=== PATIENT | female | born 1970 | race Caucasian/White ===

== ENCOUNTER → 2016-02-19 | Outpatient (CLI) | payer BC ==
[~2016-02-19] MED LIST: CHOL100010 PO; DICL75TA2 PO; FERR18TA; FLV1; IBUP-103 PO; LACT1CAP6; NASAL SPRAY; PRLSR20 PO; PSYL55.43 PO; SERT25TA PO; TYLOTC500 PO; VALA500T60 PO; [UNRECOGNIZED DRUG - CODE]
== END | disposition home or self-care (01) ==
LOC: C.RDSM 12:45
PROVIDERS: ATTEND Physical Medicine & Rehabilitation Sports Medicine
DX: M54.5 Low back pain (principal)

== ENCOUNTER → 2016-04-08 | Outpatient (CLI) | payer BC ==
[2016-04-08 17:15] LABS: URINE APPEARANCE CLEAR (CLEAR); URINE BILIRUBIN NEG (NEG); URINE COLOR YELLOW; URINE EPITHELIAL CELL AUTO >30 /lpf (0-5); URINE NITRITE NEG (NEG); URINE PH 7.5 (4.5-7.5); URINE SPECIFIC GRAVITY 1.003 (1.000-1.030); UROBILINOGEN NEG (NEG)
[2016-04-08 17:30] LABS: MANUAL MICROSCOPIC REQUIRED? NO; REVIEW REQ? NO
== END | disposition home or self-care (01) ==
LOC: C.LABSPEC 15:22
PROVIDERS: ATTEND Obstetrics & Gynecology
DX: N76.0 Acute vaginitis (principal); R39.9 Unspecified symptoms and signs involving the genitourinary system

== ENCOUNTER → 2016-05-23 | Outpatient (CLI) | payer BC ==
[~2016-05-23] MED LIST changes: +DICY10CA55 PO; +PRENTAB26 PO; +PYRI100T4 PO; +VNTHFA/IN INH
== END | disposition home or self-care (01) ==
LOC: C.LABSPEC 13:44
PROVIDERS: ATTEND Obstetrics & Gynecology
DX: N89.8 Other specified noninflammatory disorders of vagina (principal)

== ENCOUNTER → 2016-07-23 | Outpatient (CLI) | payer BC | END | disposition home or self-care (01) | LOC: C.LABSPEC 16:46 | PROVIDERS: ATTEND Obstetrics & Gynecology | DX: N76.4 Abscess of vulva (principal) ==

== ENCOUNTER → 2016-07-30 | Outpatient (CLI) | payer BC | END | disposition home or self-care (01) | LOC: C.LABSPEC 10:20 | PROVIDERS: ATTEND Obstetrics & Gynecology | DX: N76.4 Abscess of vulva (principal) ==

== ENCOUNTER → 2016-08-07 | Outpatient (CLI) | payer BC ==
[2016-08-07 12:22] LABS: BASO % 0.4 %; BASO ABS # 0.03 K/uL (0-0.2); COMPLETE YES; EOS % 1.5 %; HEMATOCRIT 41.5 % (37-47); IG% 0.3 %; LYMPH % 30.3 %; LYMPH ABS # 2.39 K/uL (1.2-3.4); MEAN CELL VOLUME 92.4 fL (80-100); MEAN CORPUSCULAR HEMOGLOBIN 29.6 pg (25-34); MEAN PLATELET VOLUME 9.4 fL (7.4-10.4); NEUT % 60.5 %; PLATELET COUNT 333 K/uL (130-400); RED BLOOD COUNT 4.49 M/uL (4.2-5.4)
[2016-08-07 13:06] LABS: ESTIMATED AVERAGE GLUCOSE 105 mg/dl; HA1C FLAG Normal (Normal)
[2016-08-11 14:15] LABS: EPSTEIN BARR VIR CAPSID IGG >750.00 U/ML
== END | disposition home or self-care (01) ==
LOC: C.LAB1850 11:36
PROVIDERS: ATTEND Obstetrics & Gynecology
DX: N76.0 Acute vaginitis (principal); R53.83 Other fatigue; R63.1 Polydipsia

== ENCOUNTER → 2016-11-03 | Outpatient (CLI) | payer BC ==
[~2016-11-03] MED LIST changes: -DICY10CA55 PO; -PRENTAB26 PO; -PYRI100T4 PO; -VNTHFA/IN INH
--- NOTE | 2016-11-03 12:07 | DIAGNOSTIC IMAGING REPORT ---
CHEST 2 VIEWS ROUTINE CLINICAL HISTORY: Cough. Chest pain. COMPARISON STUDY: Chest radiograph January 04, 2013. FINDINGS: Lung volumes are normal. No pneumothorax or pleural effusion is present. Pulmonary vascularity is normal. Cardiomediastinal silhouette is normal. The appearance of the chest is unchanged. IMPRESSION: No acute cardiopulmonary findings. Electronically signed by: Butch Hartley M.D. 11/03/2016 12:06 PM Dictated Date/Time: 11/03/2016 12:05 PM
== END | disposition home or self-care (01) ==
LOC: C.RAD1850 11:56
PROVIDERS: ATTEND Family Medicine
DX: R05 Cough (principal)

== ENCOUNTER → 2016-11-05 | Outpatient (CLI) | payer BC ==
--- NOTE | 2016-11-05 09:54 | DIAGNOSTIC IMAGING REPORT ---
ABDOMEN LIMITED (US) CLINICAL HISTORY: 46 years-old Female presenting with chest pain, right upper quadrant tenderness. TECHNIQUE: Real-time grayscale and limited color Doppler ultrasound imaging of the abdomen limited to the right upper quadrant was performed. COMPARISON: None. FINDINGS: Pancreas: Visualized portions of the pancreatic head and body normal. Liver: Normal echogenicity and echotexture. No sonographic evidence of hepatic mass. Main portal vein patent with normal directional flow. Biliary: No intrahepatic biliary ductal dilatation. Common bile duct measures up to 3 mm in diameter. Gallbladder: No evidence of gallstones, gallbladder wall thickening, gallbladder distention, or pericholecystic fluid or inflammatory change. Right kidney: No hydronephrosis. Ascites: None. Vasculature: Visualized portions of the abdominal aorta and IVC patent. IMPRESSION: Normal right upper quadrant ultrasound. Electronically signed by: Lasha Velasquez M.D. 11/05/2016 9:53 AM Dictated Date/Time: 11/05/2016 9:50 AM
== END | disposition home or self-care (01) ==
LOC: C.ULTR 09:27
PROVIDERS: ATTEND Family Medicine
DX: R07.9 Chest pain, unspecified (principal); R10.811 Right upper quadrant abdominal tenderness

== ENCOUNTER → 2016-11-26 | Outpatient (CLI) | payer BC ==
--- NOTE | 2016-11-26 13:40 | MAMMOGRAPHY REPORT ---
BILATERAL DIGITAL DIAGNOSTIC MAMMOGRAM TOMOSYNTHESIS WITH CAD AND TARGETED LEFT ULTRASOUND: 7 CLINICAL HISTORY: 46-year-old woman presents for bilateral screening mammography. A follow-up was pr eviously recommended in the right breast for an asymmetry versus mastectomy did not persist with messi tional imaging. Patient has a history of prior left breast surgery, and a skin scar is evident in th e axillary tail of the left breast. The patient also reports multiple areas of intermittent pain, wo rse with palpation in the left breast. No palpable mass or nipple discharge. TECHNIQUE: Bilateral CC and MLO 2-D and tomosynthesis images were obtained. Current study was also evaluated with a Computer Aided Detection (CAD) system. COMPARISON: Comparison is made to exams dated: 11/27/2014 ultrasound, 11/27/2014 mammogram, 5 mammogram, 05/07/2011 ultrasound, 05/07/2011 consultation, and 04/24/2010 ultrasound biopsy - [facility]. BREAST COMPOSITION: The tissue of both breasts is extremely dense, which lowers the sensitivity of m ammography. FINDINGS: No suspicious mass, asymmetry or cluster of microcalcifications is seen in the breasts. In particular, the asymmetry in the medial posterior right breast on the CC view is no longer seen, con firming benignity. There is a questionable area of architectural distortion in the far superior left breast on the MLO view (tomosynthesis slice 15/69), for which further evaluation with ultrasound was performed. Targeted ultrasound was performed in the superior left breast. While scanning in the superior left b reast, the patient reported prior surgery and a skin scar was visualized in the axillary tail region. Ultrasound of the superior left breast demonstrated several areas of pain elicited with scanning in particular in the 12:00 left breast, 9 cm from the nipple, 11:00 and 1:00 left breast, 9 cm from the nipple. However in these areas no suspicious solid or cystic mass was seen. Additional scanning pe rformed over the skin scar demonstrates expected architectural distortion. No suspicious solid or cy stic mass. Then a scar marker was placed overlying the skin scar and a repeat left MLO tomosynthesis image was o btained, which demonstrates correlation of the scar marker with the area of distortion, confirming be nign postsurgical distortion. IMPRESSION: ACR BI-RADS CATEGORY 2: BENIGN, TARGETED ULTRASOUND ACR BI-RADS CATEGORY 2: BENIGN There is expected architectural distortion from prior surgery in the axillary tail of the left breast . No persistent asymmetry in the medial right breast. Overall, no mammographic evidence of malignan cy bilaterally. Recommend bilateral mammography in one year. Consider remaining a diagnostic patien t given the extremely dense breasts and fluctuating pain. These results and recommendations were discussed with the patient at the time of the exam. Approximately 10% of breast cancers are not detected with mammography. A negative mammographic report should not delay biopsy if a clinically suggestive mass is present. Lilly Espino M.D. ay/:11/26/2016 10:42:34 [facility]: Abeba BREAUX(R)(M), [facility] letter sent: Normal 1/2 BI-RADS Code: ACR BI-RADS Category 2: Benign Ultrasound BI-RADS: ACR BI-RADS Category 2: Benign
== END ==
LOC: C.MAMM 09:44
PROVIDERS: ATTEND Obstetrics & Gynecology

== ENCOUNTER → 2016-12-10 | Outpatient (CLI) | payer BC ==
--- NOTE | 2016-12-10 10:36 | DIAGNOSTIC IMAGING REPORT ---
ULTRASOUND R VENOUS DOPP LOWER EXT UNILAT CLINICAL HISTORY: M79.604 RIGHT LEG SWELLING COMPARISON STUDY: No previous studies for comparison. FINDINGS: Real-time and color flow Doppler imaging were performed. Flow was seen within the femoral, popliteal and calf veins with no intraluminal thrombus demonstrated. The saphenous vein is patent. The patient reports a palpable abnormality within the anterior lower thigh just above the knee. There is an 18 x 13 x 7 mm hyperechoic focus containing a hypoechoic center within the subcutaneous fat corresponding to this abnormality. This likely represents an area of fat necrosis. IMPRESSION: No evidence of right lower extremity DVT. Electronically signed by: Michael Coronado M.D. 12/10/2016 10:34 AM Dictated Date/Time: 12/10/2016 10:33 AM
== END | disposition home or self-care (01) ==
LOC: C.ULTR 09:48
PROVIDERS: ATTEND Family Medicine
DX: M79.604 Pain in right leg (principal)

== ENCOUNTER → 2016-12-24 | Outpatient (CLI) | payer BC ==
[~2016-12-24] MED LIST changes: +PRENTAB26 PO; +PYRI100T4 PO; +VNTHFA/IN INH
== END | disposition home or self-care (01) ==
LOC: C.LABSPEC 15:48
PROVIDERS: ATTEND Obstetrics & Gynecology
DX: N76.0 Acute vaginitis (principal); N76.4 Abscess of vulva

== ENCOUNTER 2017-01-01 00:46 | Emergency (ER) | payer BC ==
[~2017-01-01] VITALS: Ht 160 cm; Wt 67.0 kg
[~2017-01-01 00:46] MED LIST changes: -PRENTAB26 PO; -PYRI100T4 PO; -VNTHFA/IN INH
[2017-01-01 00:47] VITALS: TEMP 36.7; Ht 160 cm; Wt 67.0 kg
[2017-01-01] MEDS ORDERED: SODIUM CHLORIDE 0.9% 1000ML 1,000 ML IV STA (00:57)
[2017-01-01] MEDS ORDERED: MoRPHine SULFATE 4 MG/ML 1 ML CARP\\VIAL IV STA ×2 (00:57→03:14)
[2017-01-01] MEDS ORDERED: ONDANSETRON INJ 2 MG/ML 2 ML VIAL IV STA (00:57)
[2017-01-01] MEDS ORDERED: OPTIRAY 320 IV PRN (01:15)
[2017-01-01 01:36] VITALS: O2SAT 98
[2017-01-01 01:38] LABS: URINE APPEARANCE CLEAR (CLEAR); URINE BILIRUBIN NEG (NEG); URINE COLOR YELLOW; URINE EPITHELIAL CELL AUTO 0-5 /lpf (0-5); URINE NITRITE NEG (NEG); URINE SPECIFIC GRAVITY 1.015 (1.000-1.030); UROBILINOGEN NEG (NEG); ZZUR CULT IF INDIC CLEAN CATCH NO
[2017-01-01 01:39] LABS: BASO % 0.3 %; BASO ABS # 0.03 K/uL (0-0.2); COMPLETE YES; EOS % 2.4 %; HEMATOCRIT 37.6 % (37-47); IG% 0.2 %; LYMPH % 40.7 %; MEAN CELL VOLUME 90.6 fL (80-100); MEAN CORPUSCULAR HEMOGLOBIN 29.9 pg (25-34); MEAN PLATELET VOLUME 9.2 fL (7.4-10.4); MONO % 7.6 %; NEUT % 48.8 %; PLATELET COUNT 325 K/uL (130-400); RED BLOOD COUNT 4.15 M/uL (4.2-5.4)
[2017-01-01 01:49] LABS: MANUAL MICROSCOPIC REQUIRED? NO; REVIEW REQ? NO
[2017-01-01 02:03] LABS: ALT/SGPT 23 U/L (12-78); AST/SGOT 18 U/L (15-37); BLOOD UREA NITROGEN 15 mg/dl (7-18); CALCIUM 8.7 mg/dl (8.5-10.1); CARBON DIOXIDE 27 mmol/L (21-32); CHLORIDE 107 mmol/L (98-107); CREATININE 0.62 mg/dl (0.60-1.20); GLUCOSE 84 mg/dl (70-99); POTASSIUM 3.7 mmol/L (3.5-5.1); SODIUM 140 mmol/L (136-145)
[2017-01-01 02:06] LABS: ALKALINE PHOSPHATASE 48 U/L (45-117)
[2017-01-01] MEDS ORDERED: VNTHFA/IN INH (02:08)
[2017-01-01] MEDS ORDERED: PRENTAB26 PO (02:09)
[2017-01-01] MEDS ORDERED: PYRI100T4 PO (02:10)
[2017-01-01] MEDS ORDERED: DICYCLOMINE HCL 10 MG CAP PO ONE (03:30)
[2017-01-01] MEDS ORDERED: DICY10CA55 PO (03:32)
[2017-01-01] MEDS ORDERED: BENTYL HOME PACK 10 MG VIAL PO ONE (03:45)
[2017-01-01 03:50] VITALS: BP 109/81; PULSE 77; O2SAT 97
--- NOTE | 2017-01-01 03:52 | EMERGENCY ROOM VISIT NOTE ---
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 Pain currently 8 out of 10. Nothing makes it better or worse. Patient's been having chronic chest pain from a pulled rib. This is unchanged. Patient has had 3 colonoscopies so far and all are negative. No history of diverticulosis or diverticulitis. There is a family history of colon cancer. Patient does suffer from IBS but this feels different. Patient denies dyspnea, fever, chills, vomiting, diarrhea, back pain , urinary symptoms. She just started her period. She has a history of endometriosis but this feels different. She sees Dr. Sales from [facility]. Review of Systems See HPI for pertinent positives & negatives. A total of 10 systems reviewed and were otherwise negative. Past Medical/Surgical History Medical Problems: (1) Depression (2) Hemorrhoids (3) IBS (irritable bowel syndrome) Social History Smoking Status: Never Smoker Smokeless Tobacco Use: No Drug Use: none Marital Status: Occupation Status: unemployed Current/Historical Medications Scheduled Cholecalciferol (Vitamin D), 2,000 INTER.UNIT PO DAILY Dicyclomine Hcl (Bentyl), 10 MG PO Q6 Ibuprofen Tab (Advil), 600 MG PO TID Multivit/Min/Iron/Fol Ac/Pren ( Vitamin), 1 TAB PO DAILY Pyridoxine (Vitamin B6), 200 MG PO DAILY Scheduled PRN Acetaminophen (Tylenol), 1,000 MG PO TID PRN for Pain Albuterol Hfa (Ventolin Hfa), 2 PUFFS INH Q6H PRN for SOB/Wheezing Valacyclovir (Valtrex), 500 MG PO BID PRN for Pain Allergies Coded Allergies: Bacitracin (Unverified Allergy, Mild, OTHER, 02/28/14) Cefprozil (Verified Allergy, Mild, ?, 02/28/14) Cefuroxime (Verified Allergy, Mild, ?, 02/28/14) Citric Acid (Unverified Allergy, Mild, OTHER, 02/28/14) Clarithromycin (Unverified Allergy, Mild, 02/28/14) Neomycin (Unverified Allergy, Mild, OTHER, 02/28/14) Povidone Iodine (Verified Allergy, Mild, SKIN IRRITATION, 02/28/14) Ketorolac Tromethamine (Verified Allergy, Unknown, UNKNOWN, 02/28/14) Pentazocine (Verified Allergy, Unknown, 02/28/14) Promethazine (Verified Allergy, Unknown, UNKNOWN, 02/28/14) Sulfa Drugs (Unverified Allergy, Unknown, rash, 02/28/14) Physical Exam Vital Signs Date Time Temp Pulse Resp B/P (MAP) Pulse Ox O2 Delivery O2 Flow Rate FiO2 01/01/17 02:36 70 15 125/81 01/01/17 01:49 68 16 111/72 96 Room Air 01/01/17 01:36 98 Room Air 01/01/17 01:30 83 01/01/17 00:47 36.7 88 20 123/82 100 Room Air Physical Exam VITALS: Vitals are noted on the nurse's note and reviewed by myself. Vital signs stable. GENERAL: White female, in no acute distress, nondiaphoretic, well-developed well -nourished. SKIN: The skin was without rashes, erythema, edema, or bruising. There is no tenting of the skin. Capillary reflex less than 2 seconds. HEAD: Normocephalic atraumatic. EARS: External auditory canals clear, tympanic membranes pearly rosado without erythema or effusion bilaterally. EYES: Pupils equal round and reactive to light and accommodation. Conjunctivae without injection, sclerae without icterus. Extraocular movements intact. NOSE: Patent, turbinates without inflammation or discharge. MOUTH: Mucous membranes moist. Pharynx without erythema or exudate. Uvula midline. Airway patent. Tongue does not deviate. NECK: Supple without nuchal rigidity. No lymphadenopathy. No thyromegaly. Cervical spine is nontender. No JVD. HEART: Regular rate and rhythm without murmurs gallops or rubs. LUNGS: Clear to auscultation bilaterally without wheezes, rales or rhonchi. No dullness to percussion. No retractions or accessory muscle use. ABDOMEN: Positive bowel sounds x 4. Normal tympanic percussion. Soft, tender to palpation left mid abdomen, no CVA tenderness, without masses or organomegaly. Curran sign negative. No guarding or rebound tenderness. MUSCULOSKELETAL: No muscle atrophy, erythema, or edema noted. NEURO: Patient was alert and oriented to person place and time. Normal sensation to light and sharp touch. No focal neurological deficits. Medical Decision & Procedures Laboratory Results 01/01/17 01:30 Red Blood Count 4.15, Mean Corpuscular Volume 90.6, Mean Corpuscular Hemoglobin 29.9, Mean Corpuscular Hemoglobin Concent 33.0, Mean Platelet Volume 9.2, Neutrophils (%) (Auto) 48.8, Lymphocytes (%) (Auto) 40.7, Monocytes (%) (Auto) 7.6, Eosinophils (%) (Auto) 2.4, Basophils (%) (Auto) 0.3, Neutrophils # (Auto) 4.19, Lymphocytes # (Auto) 3.50, Monocytes # (Auto) 0.65, Eosinophils # (Auto) 0.21, Basophils # (Auto) 0.03 01/01/17 01:30 Test 01/01/17 01:30 01/01/17 01:35 White Blood Count 8.60 K/uL (4.8-10.8) Red Blood Count 4.15 M/uL (4.2-5.4) Hemoglobin 12.4 g/dL (12.0-16.0) Hematocrit 37.6 % (37-47) Mean Corpuscular Volume 90.6 fL (80-100) Mean Corpuscular Hemoglobin 29.9 pg (25-34) Mean Corpuscular Hemoglobin Concent 33.0 g/dl (32-36) Platelet Count 325 K/uL (130-400) Mean Platelet Volume 9.2 fL (7.4-10.4) Neutrophils (%) (Auto) 48.8 % Lymphocytes (%) (Auto) 40.7 % Monocytes (%) (Auto) 7.6 % Eosinophils (%) (Auto) 2.4 % Basophils (%) (Auto) 0.3 % Neutrophils # (Auto) 4.19 K/uL (1.4-6.5) Lymphocytes # (Auto) 3.50 K/uL (1.2-3.4) Monocytes # (Auto) 0.65 K/uL (0.11-0.59) Eosinophils # (Auto) 0.21 K/uL (0-0.5) Basophils # (Auto) 0.03 K/uL (0-0.2) RDW Standard Deviation 42.8 fL (36.4-46.3) RDW Coefficient of Variation 12.8 % (11.5-14.5) Immature Granulocyte % (Auto) 0.2 % Immature Granulocyte # (Auto) 0.02 K/uL (0.00-0.02) Urine Color YELLOW Urine Appearance CLEAR (CLEAR) Urine pH 6.0 (4.5-7.5) Urine Specific Sutton 1.015 (1.000-1.030) Urine Protein NEG (NEG) Urine Glucose (UA) NEG (NEG) Urine Ketones NEG (NEG) Urine Occult Blood TRACE (NEG) Urine Nitrite NEG (NEG) Urine Bilirubin NEG (NEG) Urine Urobilinogen NEG (NEG) Urine Leukocyte Esterase NEG (NEG) Urine WBC (Auto) 1-5 /hpf (0-5) Urine RBC (Auto) 0-4 /hpf (0-4) Urine Hyaline Casts (Auto) 0 /lpf (0-5) Urine Epithelial Cells (Auto) 0-5 /lpf (0-5) Urine Bacteria (Auto) NEG (NEG) Anion Gap 6.0 mmol/L (3-11) Est Creatinine Clear Calc Drug Dose 106.4 ml/min Estimated GFR () 127.1 Estimated GFR (Non- 109.7 BUN/Creatinine Ratio 24.0 (10-20) Calcium Level 8.7 mg/dl (8.5-10.1) Total Bilirubin 0.2 mg/dl (0.2-1) Direct Bilirubin < 0.1 mg/dl (0-0.2) Aspartate Amino Transf (AST/SGOT) 18 U/L (15-37) Alanine Aminotransferase (ALT/SGPT) 23 U/L (12-78) Alkaline Phosphatase 48 U/L (45-117) Total Protein 7.2 gm/dl (6.4-8.2) Albumin 3.8 gm/dl (3.4-5.0) Lipase 239 U/L (73-393) Bedside Troponin I < 0.030 ng/ml (0-0.045) Medications Administered Medications (Trade) Dose Ordered Sig/Wale Route Start Time Stop Time Status Last Admin Dose Admin Morphine Sulfate (MoRPHine SULFATE INJ) 4 mg NOW STAT IV 01/01/17 00:57 01/01/17 01:08 DC 01/01/17 01:42 4 MG Ondansetron HCl (Zofran Inj) 4 mg NOW STAT IV 01/01/17 00:57 01/01/17 01:08 DC 01/01/17 01:42 4 MG Sodium Chloride 1,000 ml @ 999 mls/hr Q1H1M STAT IV 01/01/17 00:57 01/01/17 01:57 DC 01/01/17 01:43 999 MLS/HR Morphine Sulfate (MoRPHine SULFATE INJ) 4 mg NOW STAT IV 01/01/17 03:14 01/01/17 03:15 DC 01/01/17 03:26 4 MG Dicyclomine HCl (Bentyl Cap) 10 mg NOW ONCE PO 01/01/17 03:30 01/01/17 03:31 DC 01/01/17 03:26 10 MG ED Course Prior records/ancillary studies reviewed. Triage Nursing notes reviewed. Additional history obtained from family. The patient's history was concerning for abdominal pain. Differential diagnosis: Etiologies such as appendicitis, diverticulitis, PUD, biliary pathology, UTI, pancreatitis, obstruction, mesenteric ischemia, aortic pathology, infections, inflammatory bowel disease, renal colic, as well as others were entertained. Physical examination findings: As above. ER treatment provided: Morphine, Zofran, Bentyl, by mouth fluids On reassessment the patient felt better. Diagnostics interpreted by me: ECG: Normal sinus, normal intervals, no acute ST-T wave changes. Impression normal sinus rhythm interpreted by myself The labs revealed lactic acid 0.51. No leukocytosis. Negative troponin Imaging studies: Chest x-ray with no acute consolidation, pneumothorax or free air per my interpretation CT the abdomen and pelvis was read by stat radiology and showed mild gaseous distention of the colon and small bowel loops. Enteritis or ileus cannot be excluded. Exam and history seem consistent with possible mild enteritis. Patient did not have acute abdomen on exam. She is well-appearing. No leukocytosis. Negative lactic acid. Patient had a colonoscopy recently this year and was unremarkable per patient. Patient was advised to do bland diet next few days and to follow- up family care in a few days or here in the ER sooner for abdominal pain, fevers , vomiting, worsening signs or symptoms or as needed. By the evaluation outlined above emergent etiologies such as appendicitis, diverticulitis, PUD, biliary pathology, UTI, pancreatitis, obstruction, mesenteric ischemia, aortic pathology, inflammatory bowel disease, renal colic , as well as others were deemed relatively unlikely. The pt informed about the findings as listed above. All questions were answered and pleased with the treatment. Return instructions were outlined and the patient was discharged in stable condition. Outpatient prescription management: Bentyl Referral: The patient was referred back to their primary care physician for follow-up in 2 to 3 days for a recheck of the current condition. Case reviewed with my attending Medical Decision As above Impression Primary Impression: Enteritis Departure Information Dispostion Home / Self-Care Condition GOOD Prescriptions Dicyclomine Hcl (BENTYL) 10 Mg Cap 10 MG PO Q6, #14 CAP Prov: Karen Webb .CECILIO 01/01/17 Forms Call Back Authorization, HOME CARE DOCUMENTATION FORM, IMPORTANT VISIT INFORMATION Patient Instructions [facility] Additional Instructions Bentyl 10 m tablet every 6-8 hours as needed for abdominal cramping. Ibuprofen(Motrin, Advil) may be used for fever or pain. Use 600mg every six hours as needed. Take with food. Avoid using more than 2400mg in a 24 hour period. Do not use 2400mg per day for more than three consecutive days without physician direction. Prolonged inappropriate use can lead to stomach upset or ulcers. (AND/OR) Acetaminophen(Tylenol) may be used for fever or pain. Use 1000mg every six hours as needed. Avoid using more than 3000mg in a 24 hour period. Rest and drink plenty of fluids as tolerated. Continue current medications. Avoid strenuous activities and anything that worsens your pain. Resume normal activities once your symptoms resolve. Return to the ER immediately for worsening or persistent abdominal pain, vomiting, fevers, chest pains, difficulty breathing, worsening of your condition , or as needed. Follow up with your primary physician in 2-3 days for a recheck of your current condition.
--- NOTE | 2017-01-01 07:08 | DIAGNOSTIC IMAGING REPORT ---
CHEST ONE VIEW PORTABLE CLINICAL HISTORY: 46 years-old Female presenting with CHEST PAIN. TECHNIQUE: Portable upright AP view of the chest was obtained. COMPARISON: 11/03/2016. FINDINGS: Cardiomediastinal silhouette normal. Lungs and pleural spaces clear. Osseous structures normal. Upper abdomen normal. IMPRESSION: 1. No acute cardiopulmonary disease. Electronically signed by: Lasha Velasquez M.D. 01/01/2017 7:06 AM Dictated Date/Time: 01/01/2017 7:06 AM
--- NOTE | 2017-01-01 07:14 | DIAGNOSTIC IMAGING REPORT ---
ABD/PELVIS IV CONTRAST ONLY CLINICAL HISTORY: 46 years-old Female presenting with llq pain. TECHNIQUE: Multidetector CT of the abdomen and pelvis was performed after the administration of intravenous contrast. IV contrast: 118 mL of Optiray 320. A dose lowering technique was used consistent with the principles of ALARA (as low as reasonably achievable). COMPARISON: Ultrasound from 11/05/2016. CT DOSE (mGy.cm): The estimated cumulative dose is 364.45 mGy.cm. FINDINGS: Refrigeration Insulator topogram: Unremarkable. Lung bases: Minimal dependent changes likely atelectasis. Normal heart size. No pericardial or pleural effusion. Liver: Normal morphology. No liver lesion. Patent hepatic vasculature. Biliary: No intrahepatic or extrahepatic biliary ductal dilatation. Normal gallbladder. Pancreas: Normal. Spleen: Normal. Adrenal glands: Normal. Kidneys and ureters: Normal. No hydronephrosis. Bladder: Circumferential bladder wall thickening allowing for underdistention. Pelvic organs: Uterus and ovaries normal. Bowel: Mild stool burden. Normal appendix. No bowel obstruction. Distal small bowel contains feces and is mildly distended possibly indicating delayed transit. Peritoneal cavity: No free fluid or intraperitoneal gas. Lymph nodes: No enlarged lymph nodes in the abdomen or pelvis. Vasculature: Aorta and IVC patent and normal in caliber. Abdominal wall: Normal. Musculoskeletal: Normal. IMPRESSION: 1. Circumferential bladder wall thickening can be seen in the setting of cystitis. Correlate with urinalysis. 2. No evidence of bowel obstruction, however, distal small bowel is mildly distended and contains feces. This may indicate delayed transit. No significant small bowel wall thickening or perienteric inflammatory change. Electronically signed by: Lasha Velasquez M.D. 01/01/2017 7:12 AM Dictated Date/Time: 01/01/2017 7:07 AM
== END 2017-01-01 03:52 | disposition home or self-care (01) ==
LOC: C.EDB 00:47
DX: K52.9 Noninfective gastroenteritis and colitis, unspecified (principal); Z98.890 Other specified postprocedural states; Z80.0 Family history of malignant neoplasm of digestive organs; Z79.899 Other long term (current) drug therapy

== ENCOUNTER → 2017-03-11 | Outpatient (CLI) | payer OTHER ==
[~2017-03-11] MED LIST changes: -DICL75TA2 PO; -FERR18TA; -FLV1; -LACT1CAP6; -NASAL SPRAY; +PRENTAB26 PO; -PRLSR20 PO; -PSYL55.43 PO; +PYRI100T4 PO; -SERT25TA PO; +VNTHFA/IN INH; -[UNRECOGNIZED DRUG - CODE]
== END | disposition home or self-care (01) ==
LOC: C.LABBC 08:43
PROVIDERS: ATTEND Obstetrics & Gynecology
DX: N91.2 Amenorrhea, unspecified (principal)

== ENCOUNTER → 2017-04-10 | Outpatient (CLI) | payer OTHER ==
[~2017-04-10] MED LIST changes: -CHOL100010 PO; +CHOL2000 PO; +GABA-112 PO; +PRLSR20 PO; +TRAM-10 PO
[2017-04-10 18:08] LABS: BLOOD UREA NITROGEN 9 mg/dl (7-18); CALCIUM 9.2 mg/dl (8.5-10.1); CARBON DIOXIDE 30 mmol/L (21-32); CREATININE 0.63 mg/dl (0.60-1.20); GLUCOSE 87 mg/dl (70-99); POTASSIUM 3.9 mmol/L (3.5-5.1); SODIUM 138 mmol/L (136-145)
== END | disposition home or self-care (01) ==
LOC: C.LAB1850 17:07
PROVIDERS: ATTEND Family Medicine
DX: T88.7XXA Unspecified adverse effect of drug or medicament, initial encounter (principal); R63.5 Abnormal weight gain; R60.9 Edema, unspecified; X58.XXXA Exposure to other specified factors, initial encounter

== ENCOUNTER → 2017-04-10 | Outpatient (CLI) | payer OTHER | END | disposition home or self-care (01) | LOC: C.LAB1850 15:11 | PROVIDERS: ATTEND Obstetrics & Gynecology | DX: N91.2 Amenorrhea, unspecified (principal) ==

== ENCOUNTER → 2017-04-21 | Outpatient (CLI) | payer OTHER ==
--- NOTE | 2017-04-21 16:27 | DIAGNOSTIC IMAGING REPORT ---
VENOUS DOPPLER LWR EXT BILA HISTORY: Pain. Edema. PAIN/SWELLING BILATERAL LEGS COMPARISON STUDY: None. FINDINGS: There is normal compressibility, flow, and augmentation within the bilateral lower extremity deep venous systems. IMPRESSION: No DVT within the right or left lower extremity. The above report was generated using voice recognition software. It may contain grammatical, syntax or spelling errors. Electronically signed by: Shawn Means M.D. 04/21/2017 4:26 PM Dictated Date/Time: 04/21/2017 4:26 PM
== END | disposition home or self-care (01) ==
LOC: C.ULTR 15:13
PROVIDERS: ATTEND Family Medicine
DX: R60.9 Edema, unspecified (principal); M79.606 Pain in leg, unspecified

== ENCOUNTER → 2017-04-21 | Outpatient (CLI) | payer OTHER ==
[~2017-04-21] MED LIST changes: +MULT1CHW63
--- NOTE | 2017-04-21 16:27 | DIAGNOSTIC IMAGING REPORT ---
R EXTREMITY NONVASCULAR LIMITED CLINICAL HISTORY: LIPOMA RT LOWER MEDIAL THIGH nodule TECHNIQUE: Ultrasound COMPARISON STUDY: None FINDINGS: At the site of clinically palpable nodularity of the anterior distal thigh, there is a 1.9 x 1.4 x 0.7 cm echogenic nodule highly suggestive of a benign lipoma. IMPRESSION: Area of clinically palpable nodularity appears to represent a benign lipoma The above report was generated using voice recognition software. It may contain grammatical, syntax or spelling errors. Electronically signed by: Shawn Means M.D. 04/21/2017 4:26 PM Dictated Date/Time: 04/21/2017 4:24 PM
== END | disposition home or self-care (01) ==
LOC: C.ULTR 15:12
PROVIDERS: ATTEND Dermatology
DX: D17.9 Benign lipomatous neoplasm, unspecified (principal)

== ENCOUNTER 2017-05-27 17:20 | Emergency (ER) | payer OTHER ==
[~2017-05-27] VITALS: Ht 160 cm; Wt 60.0 kg
[~2017-05-27 17:20] MED LIST changes: -MULT1CHW63; +MULT1CHW63 PO
[2017-05-27 17:32] VITALS: TEMP 36.9; O2SAT 99; Ht 160 cm; Wt 60.0 kg
--- NOTE | 2017-05-27 17:41 | EMERGENCY ROOM VISIT NOTE ---
History Report prepared by Jossie: Samia Pinto Under the Supervision of: Dr. Armani Velázquez M.D. First contact with patient: 17:28 Chief Complaint: CHEST PAIN Stated Complaint: LEFT SIDE CHEST PAIN, SWELLING IN LEFT HAND FINGER History of Present Illness The patient is a 47 year old female who presents to the Emergency Room with complaints of intermittent chest pain beginning several weeks ago. She rates her pain at a 7/10. The patient reports that she has noticed this chest pain ever since she came off of Gabapentin for shingles. The patient reports that she had leg swelling which stopped with the Gabapentin but reports having arm swelling once she got off of the Gabapentin. She also reports that her pain radiates to her back and left shoulder. The patient states that she had palpitations with her chest pain today. She reports having nausea but no vomiting. She reports that she has anxiety and that she gets nervous with pain and that she got nervous with this chest pain today. She states that movement and her anxiety exacerbate her pain. The patient denies a history of blood clots but reports that her mother had a blood clot and that her grandmother had a heart attack. The patient reports that she has also had weight gain over the last couple of years. She denies a history of smoking. She states that she has an upcoming stress test in 8 days. Source of History: patient Onset: several weeks ago Position: chest Symptom Intensity: rated at a 7/10 Quality: other (pain) Modifying Factors (Worsening): movement, other (anxiety) Associated Symptoms: + nausea, + back pain, No vomiting Note: additional symptoms: left shoulder pain, palpitations Review of Systems See HPI for pertinent positives and negatives. A total of ten systems were reviewed and were otherwise negative. Past Medical & Surgical Medical Problems: (1) Anxiety (2) Asthma (3) Chronic fatigue syndrome with fibromyalgia (4) Depression (5) Endometriosis (6) Fibromyalgia (7) Hemorrhoids (8) Herpes zoster infection of thoracic region (9) IBS (irritable bowel syndrome) (10) Renal stones Surgical Problems: (1) H/O hemorrhoidectomy (2) S/P lumpectomy, left breast (3) S/P lumpectomy, right breast Family History Blood clots Cancer Diabetes mellitus FH: myocardial infarction Heart disease Hypertension Social History Smoking Status: Never Smoker Drug Use: none Marital Status: Occupation Status: unemployed Current/Historical Medications Scheduled Cholecalciferol (Vitamin D3), 2,000 INTER.UNIT PO DAILY Famotidine (Pepcid), 20 MG PO BID Multiple Vitamins W/ Minerals (Airborne Immune System), 1 TAB PO TID Multivit/Min/Iron/Fol Ac/Pren ( Vitamin), 1 TAB PO DAILY Omeprazole (Prilosec), 20 MG PO DAILY Pyridoxine (Vitamin B6), 200 MG PO DAILY Scheduled PRN Acetaminophen (Tylenol), 1,000 MG PO TID PRN for Pain Albuterol Hfa (Ventolin Hfa), 2 PUFFS INH Q6H PRN for SOB/Wheezing Ibuprofen Tab (Advil), 200 MG PO UD PRN for Pain Valacyclovir (Valtrex), 500 MG PO UD PRN for Cold Sore(s) Allergies Coded Allergies: Bacitracin (Unverified Allergy, Mild, OTHER, 04/28/17) Cefprozil (Verified Allergy, Mild, ?, 04/28/17) Cefuroxime (Verified Allergy, Mild, ?, 04/28/17) Citric Acid (Unverified Allergy, Mild, OTHER, 04/28/17) Clarithromycin (Unverified Allergy, Mild, 04/28/17) Neomycin (Unverified Allergy, Mild, OTHER, 04/28/17) Povidone Iodine (Verified Allergy, Mild, SKIN IRRITATION, 04/28/17) Ketorolac Tromethamine (Verified Allergy, Unknown, UNKNOWN, 04/28/17) Pentazocine (Verified Allergy, Unknown, 04/28/17) Promethazine (Verified Allergy, Unknown, UNKNOWN, 04/28/17) Sulfa Drugs (Unverified Allergy, Unknown, rash, 04/28/17) Physical Exam Vital Signs Date Time Temp Pulse Resp B/P (MAP) Pulse Ox O2 Delivery O2 Flow Rate FiO2 05/27/17 19:32 82 18 109/81 99 Room Air 05/27/17 17:34 99 Room Air 05/27/17 17:33 84 05/27/17 17:32 36.9 93 18 120/86 99 Room Air 05/27/17 17:32 99 Room Air Physical Exam GENERAL: Awake, alert, anxious-appearing, in no distress HENT: Normocephalic, atraumatic. Dry mucous membranes otherwise oropharynx unremarkable. EYES: Normal conjunctiva. Sclera non-icteric. NECK: Supple. No nuchal rigidity. FROM. No JVD. RESPIRATORY: Clear to auscultation. CARDIAC: Regular rate, normal rhythm. Extremities warm and well perfused. Pulses equal. ABDOMEN: Soft, non-distended. No tenderness to palpation. No rebound or guarding. No masses. RECTAL: Deferred. MUSCULOSKELETAL: Reproducible left anterior chest wall tenderness. The back is symmetrical on inspection without obvious abnormality. There is no CVA tenderness to palpation. No joint edema. LOWER EXTREMITIES: Calves are equal size bilaterally and non-tender. No edema. No discoloration. NEURO: Normal sensorium. No sensory or motor deficits noted. SKIN: No rash or jaundice noted. Medical Decision & Procedures ER Provider Diagnostic Interpretation: Radiology results as stated below per my review and radiologist interpretation: CHEST ONE VIEW PORTABLE CLINICAL HISTORY: Chest pain. COMPARISON STUDY: Chest radiograph January 01, 2017. FINDINGS: Lung volumes are normal. No pneumothorax or pleural effusion is noted. There is no consolidation or evidence for pulmonary edema. Cardiomediastinal silhouette is normal. Appearance of the chest is unchanged. IMPRESSION: No acute cardiopulmonary findings. Electronically signed by: Butch Hartley M.D. 05/27/2017 6:45 PM Dictated Date/Time: 05/27/2017 6:44 PM Laboratory Results 05/27/17 17:45 Red Blood Count 4.39, Mean Corpuscular Volume 91.1, Mean Corpuscular Hemoglobin 30.3, Mean Corpuscular Hemoglobin Concent 33.3, Mean Platelet Volume 9.2, Neutrophils (%) (Auto) 59.0, Lymphocytes (%) (Auto) 30.0, Monocytes (%) (Auto) 8.9, Eosinophils (%) (Auto) 1.6, Basophils (%) (Auto) 0.2, Neutrophils # (Auto) 5.08, Lymphocytes # (Auto) 2.59, Monocytes # (Auto) 0.77, Eosinophils # (Auto) 0.14, Basophils # (Auto) 0.02 05/27/17 17:45 Test 05/27/17 17:45 White Blood Count 8.63 K/uL (4.8-10.8) Red Blood Count 4.39 M/uL (4.2-5.4) Hemoglobin 13.3 g/dL (12.0-16.0) Hematocrit 40.0 % (37-47) Mean Corpuscular Volume 91.1 fL (80-100) Mean Corpuscular Hemoglobin 30.3 pg (25-34) Mean Corpuscular Hemoglobin Concent 33.3 g/dl (32-36) Platelet Count 322 K/uL (130-400) Mean Platelet Volume 9.2 fL (7.4-10.4) Neutrophils (%) (Auto) 59.0 % Lymphocytes (%) (Auto) 30.0 % Monocytes (%) (Auto) 8.9 % Eosinophils (%) (Auto) 1.6 % Basophils (%) (Auto) 0.2 % Neutrophils # (Auto) 5.08 K/uL (1.4-6.5) Lymphocytes # (Auto) 2.59 K/uL (1.2-3.4) Monocytes # (Auto) 0.77 K/uL (0.11-0.59) Eosinophils # (Auto) 0.14 K/uL (0-0.5) Basophils # (Auto) 0.02 K/uL (0-0.2) RDW Standard Deviation 41.1 fL (36.4-46.3) RDW Coefficient of Variation 12.3 % (11.5-14.5) Immature Granulocyte % (Auto) 0.3 % Immature Granulocyte # (Auto) 0.03 K/uL (0.00-0.02) D-Dimer 310 ug/L FEU (0-500) Anion Gap 4.0 mmol/L (3-11) Est Creatinine Clear Calc Drug Dose 80.5 ml/min Estimated GFR () 115.3 Estimated GFR (Non- 99.5 BUN/Creatinine Ratio 14.7 (10-20) Calcium Level 9.0 mg/dl (8.5-10.1) Total Bilirubin 0.3 mg/dl (0.2-1) Direct Bilirubin < 0.1 mg/dl (0-0.2) Aspartate Amino Transf (AST/SGOT) 18 U/L (15-37) Alanine Aminotransferase (ALT/SGPT) 26 U/L (12-78) Alkaline Phosphatase 56 U/L (45-117) Troponin I < 0.015 ng/ml (0-0.045) Total Protein 7.6 gm/dl (6.4-8.2) Albumin 3.9 gm/dl (3.4-5.0) Lipase 165 U/L (73-393) Laboratory results reviewed by me Medications Administered Medications (Trade) Dose Ordered Sig/Wale Route Start Time Stop Time Status Last Admin Dose Admin Sodium Chloride 1,000 ml @ 999 mls/hr Q1H1M STAT IV 05/27/17 17:47 05/27/17 18:47 DC 05/27/17 18:05 999 MLS/HR Famotidine (Pepcid Tab) 20 mg NOW ONCE PO 05/27/17 18:00 05/27/17 18:02 DC 05/27/17 18:05 20 MG Al Hydroxide/Mg Hydroxide (Maalox Susp) 30 ml STK-MED ONCE .ROUTE 05/27/17 17:56 05/27/17 17:57 DC 05/27/17 18:05 30 ML Lidocaine HCl (Viscous Lidocaine 2% Soln) 20 ml STK-MED ONCE .ROUTE 05/27/17 17:56 05/27/17 17:57 DC 05/27/17 18:05 20 ML ECG Per My Interpretation Indication: chest pain Rate (beats per minute): 70 Rhythm: sinus rhythm (with short VT) Findings: no acute ischemic change, other (normal axis ) ED Course 1728: The patient was evaluated in room A4B. A complete history and physical exam was performed. 1939: I reevaluated the patient and she is doing well. Discussed results and discharge instructions: She verbalized understanding and agreement. The patient is ready for discharge. Medical Decision I reviewed the patient's past medical history, medications, and the nursing notes as described above. Differential diagnosis: Etiologies such as cardiac ischemia, aortic dissection, pulmonary embolism, pneumonia, pneumothorax, musculoskeletal, infections, pericarditis, myocarditis , esophageal rupture, gastrointestinal, as well as others were entertained. The patient is a 47 y/o woman with a pmhx of fibromyalgia, anxiety, and recent zoster infection with residual post-herpetic neuralgia who presents to the emergency department with SSCP that has been ongoing for weeks per HPI. On arrival the patient is anxious appearing but in NAD, AFVSS. On exam has reproducible ttp of left anterior CW. EKG unremarkable without evidence of acute ischemia. Troponin negative in the setting of weeks of sx. D-dimer negative. WBC wnl. CXR negative. Patient reports recent increase reflux and so given trial of pepcid and GI cocktail with improvement in sx. Heart score 2, low risk, acs unlikely.D-dimer negative PE not likely. Not positional, pericarditis not likely. No tearing pain and equal pulses, dissection not likely. Likely multi-factorial, neuropathic pain vs gastritis with underlying anxiety. Findings and plan for follow-up reviewed with patient. Patient agreeable and d/c'd per discharge instructions. Medication Reconcilliation Current Medication List: was personally reviewed by me Blood Pressure Screening Patient's blood pressure: Normal blood pressure Impression Primary Impression: Substernal precordial chest pain Additional Impression: Chest wall pain Scribe Attestation The scribe's documentation has been prepared under my direction and personally reviewed by me in its entirety. I confirm that the note above accurately reflects all work, treatment, procedures, and medical decision making performed by me. Departure Information Dispostion Home / Self-Care Prescriptions Famotidine (PEPCID) 20 Mg Tab 20 MG PO BID for 14 Days, #28 TAB Prov: Armani Velázquez M.D. 05/27/17 Referrals Artem Oseguera M.D. (PCP) Forms Call Back Authorization, HOME CARE DOCUMENTATION FORM, IMPORTANT VISIT INFORMATION Patient Instructions Anxiety Body Response, ED Chest Pain Atypical Unkn Cause, ED Chest Pain Costochondritis, ED PUD Vs Gastritis, My [facility] Additional Instructions Please follow up with your primary care physician in the next 1-3 days for re- evaluation. The cause of your symptoms is unclear at this time, however it may be due to your known neuropathic pain possibly and exacerbated your known underlying anxiety. It is also possible that you may have a component of gastritis or a peptic ulcer that could explain your symptoms as well. Otherwise, your exam, EKG, chest xray, and lab results did not show signs of an emergent condition at this time. Continue your current medications. Add Pepcid for additional acid reduction and Tums as needed to see if this helps her symptoms. Drink plenty of fluids to ensure hydration. Return to the emergency department for worsening symptoms as described in the accompanying instructions. Problem Qualifiers
[2017-05-27] MEDS ORDERED: SODIUM CHLORIDE 0.9% 1000ML 1,000 ML IV STA (17:47)
[2017-05-27] MEDS ORDERED: GI COCKTAIL PO STA (17:47)
[2017-05-27] MEDS ORDERED: ALUMINUM/MAGNESIUM SUSP 30 ML UDC ONE (17:56)
[2017-05-27] MEDS ORDERED: LIDOCAINE HCL 2% VISC SOLN 20 ML UDC ONE (17:56)
[2017-05-27] MEDS ORDERED: FAMOTIDINE 20 MG TAB PO ONE (18:00)
[2017-05-27 18:14] LABS: BASO % 0.2 %; BASO ABS # 0.02 K/uL (0-0.2); EOS % 1.6 %; EOS ABS # 0.14 K/uL (0-0.5); HEMOGLOBIN 13.3 g/dL (12.0-16.0); IG# 0.03 K/uL (0.00-0.02); LYMPH ABS # 2.59 K/uL (1.2-3.4); MEAN CELL VOLUME 91.1 fL (80-100); MEAN CORPUSCULAR HEMOGLOBIN 30.3 pg (25-34); MEAN CORPUSCULAR HGB CONC 33.3 g/dl (32-36); MEAN PLATELET VOLUME 9.2 fL (7.4-10.4); MONO % 8.9 %; MONO ABS # 0.77 K/uL (0.11-0.59); NEUT ABS # 5.08 K/uL (1.4-6.5); PLATELET COUNT 322 K/uL (130-400); RED CELL DISTRIBUTION WIDTH CV 12.3 % (11.5-14.5); RED CELL DISTRIBUTION WIDTH SD 41.1 fL (36.4-46.3); WHITE BLOOD COUNT 8.63 K/uL (4.8-10.8)
--- NOTE | 2017-05-27 18:47 | DIAGNOSTIC IMAGING REPORT ---
CHEST ONE VIEW PORTABLE CLINICAL HISTORY: Chest pain. COMPARISON STUDY: Chest radiograph January 01, 2017. FINDINGS: Lung volumes are normal. No pneumothorax or pleural effusion is noted. There is no consolidation or evidence for pulmonary edema. Cardiomediastinal silhouette is normal. Appearance of the chest is unchanged. IMPRESSION: No acute cardiopulmonary findings. Electronically signed by: Butch Hartley M.D. 05/27/2017 6:45 PM Dictated Date/Time: 05/27/2017 6:44 PM
[2017-05-27 18:49] LABS: ALBUMIN 3.9 gm/dl (3.4-5.0); BLOOD UREA NITROGEN 11 mg/dl (7-18); CARBON DIOXIDE 28 mmol/L (21-32); CREATININE 0.73 mg/dl (0.60-1.20); GLUCOSE 92 mg/dl (70-99); LIPASE 165 U/L (73-393); SODIUM 137 mmol/L (136-145)
[2017-05-27 18:54] LABS: ALKALINE PHOSPHATASE 56 U/L (45-117); ALT/SGPT 26 U/L (12-78); AST/SGOT 18 U/L (15-37); TOTAL PROTEIN 7.6 gm/dl (6.4-8.2)
[2017-05-27 19:32] VITALS: BP 109/81; PULSE 82; O2SAT 99
[2017-05-27] MEDS ORDERED: FAMO20TA9 PO (19:49)
== END 2017-05-27 18:00 | disposition home or self-care (01) ==
LOC: C.EDB 17:21 → C.EDA 18:00
DX: R07.2 Precordial pain (principal); R07.89 Other chest pain; F41.9 Anxiety disorder, unspecified; J45.909 Unspecified asthma, uncomplicated; F32.9 Major depressive disorder, single episode, unspecified; M79.7 Fibromyalgia; K58.9 Irritable bowel syndrome, unspecified; Z83.3 Family history of diabetes mellitus; Z82.49 Family history of ischemic heart disease and other diseases of the circulatory system; Z79.899 Other long term (current) drug therapy; Z88.8 Allergy status to other drugs, medicaments and biological substances

== ENCOUNTER → 2017-06-10 | Outpatient (CLI) | payer OTHER ==
[~2017-06-10] MED LIST changes: +FAMO20TA9 PO; -GABA-112 PO; -TRAM-10 PO
== END | disposition home or self-care (01) ==
LOC: C.LABSPEC 10:52
PROVIDERS: ATTEND Obstetrics & Gynecology
DX: N76.0 Acute vaginitis (principal)

== ENCOUNTER → 2017-06-10 | Outpatient (CLI) | payer OTHER | END | disposition home or self-care (01) | LOC: C.PAPS 11:39 | PROVIDERS: ATTEND Obstetrics & Gynecology | DX: Z12.4 Encounter for screening for malignant neoplasm of cervix (principal) ==